=== PATIENT | female | born 1970 | race Caucasian/White ===

== ENCOUNTER 2017-05-21 16:26 | Emergency (ER) | payer MEDICAID | END 2017-05-21 19:18 | disposition home or self-care (01) | LOC: D.ER 16:26 | DX: S16.1XXA Strain of muscle, fascia and tendon at neck level, initial encounter (principal); X58.XXXA Exposure to other specified factors, initial encounter; Y93.89 Activity, other specified; Y92.029 Unspecified place in mobile home as the place of occurrence of the external cause; M62.838 Other muscle spasm; F17.200 Nicotine dependence, unspecified, uncomplicated ==

== ENCOUNTER 2017-10-01 20:00 | Inpatient (IN) | payer MEDICAID ==
[~2017-10-01] VITALS: Ht 172.7 cm; Wt 80.5 kg
--- NOTE | ~2017-10-01 | OP ---
PATIENT NAME: TETE KNIGHT MEDICAL RECORD: [id number] :72 LOCATION:[id number] ADMISSION DATE:10/02/17 SURGEON: ALYSSA PHOENIX MD DATE OF OPERATION: 10/02/2017 PREOPERATIVE DIAGNOSIS: Right ankle fracture. POSTOPERATIVE DIAGNOSIS: Right ankle fracture. PROCEDURE: Open reduction internal fixation of lateral malleolar fracture. SURGEON: Alyssa Phoenix MD ANESTHESIA: General. INTRAOPERATIVE COMPLICATIONS: None. SUMMARY OF PATHOLOGIC FINDINGS: The patient had substantial fracture; however, it reduced nicely and the medial clear space was closed. OPERATIVE SUMMARY IN DETAIL: After obtaining the appropriate preoperative orthopedic surgery consent as well as anesthetic consultation, evaluation and clearance, the patient was brought to the operating room and placed on the operating table in supine position. After general laryngeal mask airway was administered, tourniquet was placed about the proximal aspect of the right lower extremity. Right lower extremity was then prepped and draped in routine sterile fashion. The leg was elevated and exsanguinated, tourniquet inflated to 350 mmHg. An incision was made with the aid of fluoroscopy directly over the lateral distal malleolus, taken down to the level of periosteum. Periosteum was gently removed from the fracture fragments as was all hematoma using a very small curette and lavage, and the fracture was reduced, held in place with fracture forceps while the 8-hole [place] VariAx plate was then affixed. Serial and sequential drill and fill was used using a combination of both compression and locking screws were used to stabilize the fracture. Final radiographs were taken in AP and lateral planes and submitted for radiologist's review. Wound was copiously irrigated and closed with #1 Vicryl, 2-0 Vicryl, and skin ca. Sterile dressings were applied. The patient was awakened and taken to recovery room in stable condition. All final needle and sponge counts were correct. TRANSINT:[id number] Voice Confirmation ID: [id number] DOCUMENT ID: [id number] ALYSSA PHOENIX MD at 1341 CC: [id number] DICTATION DATE: 11/07/17 2252 OYSTER SORTER: 11/08/17 0934 DIS IN 10/03/17 [place] [address]
[2017-10-01 20:55] LABS: BASOPHILS 0.3 % (0-2); EOSINOPHILS 2.4 % (0-7); HEMOGLOBIN 13.5 g/dL (12-16); IMMATURE GRANULOCYTES 0.5 % (0-5); LYMPHOCYTES 26.5 % (15-50); MCH 31.3 pg (26.0-34.0); MCHC 33.8 g/dL (31.0-37.0); MCV 92.8 fL (80.0-100.0); MEAN PLATELET VOLUME 11.1 fL (7.4-10.4); MONOCYTES 9.7 % (2-11); NEUTROPHILS 60.6 % (40-80); PLATELET COUNT 246 10x3/uL (130-400); RBC 4.31 10x6/uL (4.00-5.40); RDW 13.8 % (11.5-14.5); WBC 10.8 10x3/uL (4.8-10.8)
[2017-10-01 21:09] LABS: ALBUMIN 3.3 g/dL (3.4-5.0); ALKALINE PHOSPHATASE 174 U/L (46-116); ALT (SGPT) 42 U/L (10-68); CALC OSMOLALITY 274 mosm/kg (275-300); CALCIUM 8.9 mg/dL (8.5-10.1); CHLORIDE - SERUM 102 mmol/L (98-107); CREATININE - SERUM 0.9 mg/dL (0.6-1.3); GLUCOSE 97 mg/dL (74-106); POTASSIUM - SERUM 4.2 mmol/L (3.5-5.1); PROTEIN - SERUM 7.6 g/dL (6.4-8.2); SODIUM 137 mmol/L (136-145); UREA NITROGEN 15 mg/dL (7-18); eGFR NON AFRICAN AMERICAN 72 mL/min (90-120)
[2017-10-01 21:14] LABS: CREATINE KINASE 78 UL (21-215); MAGNESIUM - SERUM 2.2 mg/dL (1.8-2.4); TROPONIN-I < 0.017 ng/mL (0.000-0.060)
[2017-10-01 21:30] LABS: APPEARANCE CLEAR (CLEAR); BILIRUBIN NEGATIVE (NEGATIVE); COLOR YELLOW (YELLOW); GLUCOSE NEGATIVE (NEGATIVE); KETONE NEGATIVE (NEGATIVE); NITRITE NEGATIVE (NEGATIVE); PROTEIN NEGATIVE (NEGATIVE); SPECIFIC GRAVITY 1.015 (1.005-1.020); UROBILINOGEN NORMAL (NORMAL)
[2017-10-01 21:35] LABS: UDS - AMPHET POSITIVE QUAL (NEGATIVE); UDS - BARB NEGATIVE QUAL (NEGATIVE); UDS - BENZO NEGATIVE QUAL (NEGATIVE); UDS - COCAINE NEGATIVE QUAL (NEGATIVE); UDS - OPIATE NEGATIVE QUAL (NEGATIVE); UDS - PCP NEGATIVE QUAL (NEGATIVE); UDS - THC NEGATIVE QUAL (NEGATIVE)
[2017-10-01 22:42] LABS: INR 0.98 (0.85-1.17); PROTIME 12.6 SECONDS (11.6-15.0)
[2017-10-01 23:49] VITALS: BP 137/83; Ht 172.7 cm; Wt 80.5 kg
[2017-10-01] MEDS ORDERED: FLUPHENAZINE HC10 MG PO (23:56)
[2017-10-01] MEDS ORDERED: ROBAXIN-750750 MG PO (23:58)
[2017-10-01] MEDS ORDERED: NEURONTIN600 MG PO (23:58)
[2017-10-02] VITALS (7 sets, daily range): BP systolic 107–138; BP diastolic 74–87
[2017-10-02] MEDS ORDERED: DOXEPIN HCL75 MG PO (00:01)
[2017-10-02] MEDS ORDERED: TEMAZEPAM30 MG PO (00:02)
[2017-10-03 04:00] VITALS: BP 124/66
[2017-10-03] MEDS ORDERED: OXYCODONE HCL10 MG PO (06:26)
[2017-10-03] MEDS ORDERED: ASPIRIN325 MG PO (06:27)
[2017-10-03 08:25] VITALS: BP 133/67
== END 2017-10-03 12:40 | disposition home or self-care (01) | DRG 494 ==
LOC: D.ER 20:00 → OBSVTIME 22:56 → D.MS 22:56
PROVIDERS: Nurse Practitioner Family; Orthopaedic Surgery
PROC: 0QSJ04Z Reposition Right Fibula with Internal Fixation Device, Open Approach (ICD-10-PCS; principal; 2017-10-02 11:45)
DX: S82.61XA Displaced fracture of lateral malleolus of right fibula, initial encounter for closed fracture (principal); W18.39XA Other fall on same level, initial encounter; F17.200 Nicotine dependence, unspecified, uncomplicated; S16.1XXA Strain of muscle, fascia and tendon at neck level, initial encounter; R55 Syncope and collapse

== ENCOUNTER 2017-11-14 10:32 | Inpatient (IN) | payer MEDICAID ==
[2017-11-14] VITALS (8 sets, daily range): BP systolic 96–126; BP diastolic 48–82; BMI 25.9
[~2017-11-14] VITALS: Ht 172.7 cm; Wt 77.3 kg
--- NOTE | ~2017-11-14 | OP ---
PATIENT NAME: TETE KNIGHT MEDICAL RECORD: [id number] :72 LOCATION:[id number] ADMISSION DATE:11/14/17 SURGEON: ALYSSA PHOENIX MD DATE OF OPERATION: 11/14/2017 PREOPERATIVE DIAGNOSIS: Superficial cellulitis of the right lateral malleolus, status post ORIF of the right ankle. POSTOPERATIVE DIAGNOSIS: Osteomyelitis of the right distal fibula. PROCEDURES: 1. Excisional debridement of skin, subcutaneous tissue, portions of fat, fascia and bone. 2. Removal of hardware, right fibula. SURGEON: Alyssa Phoenix MD ANESTHESIA: General. INTRAOPERATIVE COMPLICATIONS: None. SUMMARY OF PATHOLOGIC FINDINGS: Upon removal of the plate, it was obvious that the entire plate had infection running down it. The 3 most distal screws essentially were no longer adherent to the bone. In fact, the patient had a cavitary abscess in the distal fibula underneath the plate. A combination of rongeur curettage was utilized to completely remove all infectious material underneath and around where the plate was after its removal. Copious bulb syringe was utilized to irrigate the area. I did note the distal tibia fracture has not healed, but maintained good alignment after the plate was removed. Having completed this and taking cultures, wound was gently closed with #1 Vicryl followed by 3-0 Prolene. Sterile dressings were applied. The patient was placed in an L&U boot. Tourniquet was deflated. The patient was awakened, taken to recovery room in stable condition. She will be admitted for IV antibiotics with infectious disease legal consultant. Please note all final needle and sponge counts were correct. TRANSINT:[id number] Voice Confirmation ID: [id number] DOCUMENT ID: [id number] ALYSSA PHOENIX MD at 1842 CC: [id number] DICTATION DATE: 11/14/[address] MRI TECHNOLOGIST: 11/15/17 0202 ADM IN [place] [id number] [place] [address]
[~2017-11-14 10:32] MED LIST: ASPIRIN325 MG PO; DOXEPIN HCL75 MG PO; FLUPHENAZINE HC10 MG PO; NEURONTIN600 MG PO; OXYCODONE HCL10 MG PO; ROBAXIN-750750 MG PO; TEMAZEPAM30 MG PO
[2017-11-14] MEDS ORDERED: MOTRIN600 MG PO (11:09)
[2017-11-14] MEDS ORDERED: BACTRIM DS TABL1 TAB PO (11:11)
[2017-11-14] MEDS ORDERED: PROZAC20 MG PO (11:11)
[2017-11-14] MEDS ORDERED: STRATTERA100 MG PO (11:12)
[2017-11-14 12:08] LABS: HEMATOCRIT 39.7 % (36.0-48.0); HEMOGLOBIN 13.4 g/dL (12-16); MCH 30.6 pg (26.0-34.0); MCHC 33.8 g/dL (31.0-37.0); MCV 90.6 fL (80.0-100.0); MEAN PLATELET VOLUME 12.7 fL (7.4-10.4); RBC 4.38 10x6/uL (4.00-5.40); RDW 14.1 % (11.5-14.5); WBC 6.8 10x3/uL (4.8-10.8)
[2017-11-15] VITALS: BP 96/59
[2017-11-15 04:00] VITALS: BP 129/79; BP 136/59
[2017-11-15 09:15] VITALS: BP 122/80; BP 148/74
[2017-11-15 09:58] LABS: HEMATOCRIT 35.5 % (36.0-48.0); HEMOGLOBIN 11.7 g/dL (12-16); MCH 29.8 pg (26.0-34.0); MCV 90.6 fL (80.0-100.0); MEAN PLATELET VOLUME 10.9 fL (7.4-10.4); RBC 3.92 10x6/uL (4.00-5.40); RDW 14.1 % (11.5-14.5)
[2017-11-15 10:03] LABS: PLATELET COUNT 239 10x3/uL (130-400)
[2017-11-15 10:20] LABS: C-REACTIVE PROTEIN 1.1 mg/dL (0.0-0.9); CALC OSMOLALITY 271 mosm/kg (275-300); CALCIUM 8.8 mg/dL (8.5-10.1); CARBON DIOXIDE 23.1 mmol/L (21.0-32.0); CHLORIDE - SERUM 103 mmol/L (98-107); CREATININE - SERUM 0.8 mg/dL (0.6-1.3); GLUCOSE 100 mg/dL (74-106); POTASSIUM - SERUM 4.1 mmol/L (3.5-5.1); SODIUM 137 mmol/L (136-145); UREA NITROGEN 7 mg/dL (7-18); eGFR NON AFRICAN AMERICAN 82 mL/min (90-120)
[2017-11-15 11:53] LABS: ERYTHROCYTE SEDIMENTATION RATE 45 mm/hr (0-20)
[2017-11-15 14:25] VITALS: BP 97/75
[2017-11-15 17:06] VITALS: BP 135/87
[2017-11-15 20:00] VITALS: BP 131/83
[2017-11-15 20:17] VITALS: Ht 172.7 cm; Wt 77.3 kg
[2017-11-16 04:00] VITALS: BP 136/66
[2017-11-16 09:30] VITALS: BP 130/87
[2017-11-16 12:25] VITALS: BP 145/90
[2017-11-16 17:10] VITALS: BP 159/102
[2017-11-16 20:00] VITALS: BP 137/80
[2017-11-17] VITALS: BP 126/62
[2017-11-17 04:00] VITALS: BP 122/86
[2017-11-17 08:55] VITALS: BP 124/78
[2017-11-17 12:23] VITALS: BP 139/79
[2017-11-17 16:43] VITALS: BP 160/99
[2017-11-17] MEDS ORDERED: PERCOCET 10/3251 TA1 PO (16:56)
== END 2017-11-17 20:16 | disposition home health service (06) | DRG 857 ==
LOC: D.OPS 10:32 → D.MS 21:02 → D.OPS 21:03 → D.MS 21:04
PROVIDERS: Anesthesiology; Orthopaedic Surgery
PROC: 0SPF04Z Removal of Internal Fixation Device from Right Ankle Joint, Open Approach (ICD-10-PCS; principal; 2017-11-14 15:45)
PROC: 0QBJ0ZZ Excision of Right Fibula, Open Approach (ICD-10-PCS; 2017-11-14 15:45)
PROC: 02HV33Z Insertion of Infusion Device into Superior Vena Cava, Percutaneous Approach (ICD-10-PCS; 2017-11-17)
PROC: B548ZZA Ultrasonography of Superior Vena Cava, Guidance (ICD-10-PCS; 2017-11-17)
DX: T81.4XXA Infection following a procedure, initial encounter (principal); M86.9 Osteomyelitis, unspecified; B95.61 Methicillin susceptible Staphylococcus aureus infection as the cause of diseases classified elsewhere; S82.61XG Displaced fracture of lateral malleolus of right fibula, subsequent encounter for closed fracture with delayed healing; X58.XXXD Exposure to other specified factors, subsequent encounter; F15.90 Other stimulant use, unspecified, uncomplicated; F17.200 Nicotine dependence, unspecified, uncomplicated

== ENCOUNTER → 2017-11-21 12:05 | Outpatient (CLI) | payer MEDICAID ==
[2017-11-15 20:17] VITALS: BMI 25.9
[~2017-11-21 12:05] MED LIST changes: +BACTRIM DS TABL1 TAB PO; +MOTRIN600 MG PO; +PERCOCET 10/3251 TA1 PO; +PROZAC20 MG PO; +STRATTERA100 MG PO
[2017-11-21 12:12] LABS: BASOPHILS 0.2 % (0-2); EOSINOPHILS 3.9 % (0-7); HEMATOCRIT 31.4 % (36.0-48.0); HEMOGLOBIN 10.3 g/dL (12-16); IMMATURE GRANULOCYTES 0.4 % (0-5); LYMPHOCYTES 19.3 % (15-50); MCHC 32.8 g/dL (31.0-37.0); MCV 91.5 fL (80.0-100.0); MEAN PLATELET VOLUME 11.7 fL (7.4-10.4); NEUTROPHILS 66.2 % (40-80); PLATELET COUNT 250 10x3/uL (130-400); RBC 3.43 10x6/uL (4.00-5.40); RDW 14.7 % (11.5-14.5); WBC 12.1 10x3/uL (4.8-10.8)
[2017-11-21 12:49] LABS: CREATININE - SERUM 0.8 mg/dL (0.6-1.3)
[2017-11-21 13:22] LABS: ERYTHROCYTE SEDIMENTATION RATE 74 mm/hr (0-20)
== END | disposition home or self-care (01) ==
LOC: D.LABREF 12:05
PROVIDERS: Student in an Organized Health Care Education/Training Program
DX: M86.9 Osteomyelitis, unspecified (principal)

== ENCOUNTER → 2017-11-28 13:15 | Outpatient (CLI) | payer MEDICAID ==
[2017-11-15 20:17] VITALS: BMI 25.9
[2017-11-28 14:06] LABS: BASOPHILS 0.5 % (0-2); EOSINOPHILS 5.7 % (0-7); HEMATOCRIT 39.4 % (36.0-48.0); HEMOGLOBIN 13.3 g/dL (12-16); IMMATURE GRANULOCYTES 0.7 % (0-5); LYMPHOCYTES 31.8 % (15-50); MCH 30.8 pg (26.0-34.0); MCHC 33.8 g/dL (31.0-37.0); MCV 91.2 fL (80.0-100.0); MEAN PLATELET VOLUME 11.3 fL (7.4-10.4); NEUTROPHILS 45.3 % (40-80); PLATELET COUNT 242 10x3/uL (130-400); RBC 4.32 10x6/uL (4.00-5.40); RDW 14.8 % (11.5-14.5)
[2017-11-28 14:15] LABS: UDS - AMPHET NEGATIVE QUAL (NEGATIVE); UDS - BARB NEGATIVE QUAL (NEGATIVE); UDS - BENZO NEGATIVE QUAL (NEGATIVE); UDS - COCAINE NEGATIVE QUAL (NEGATIVE); UDS - OPIATE NEGATIVE QUAL (NEGATIVE); UDS - PCP NEGATIVE QUAL (NEGATIVE); UDS - THC POSITIVE QUAL (NEGATIVE)
[2017-11-28 14:17] LABS: C-REACTIVE PROTEIN 0.6 mg/dL (0.0-0.9); CREATININE - SERUM 0.6 mg/dL (0.6-1.3)
[2017-11-28 15:11] LABS: ERYTHROCYTE SEDIMENTATION RATE 37 mm/hr (0-20)
== END | disposition home or self-care (01) ==
LOC: D.LABREF 13:15
PROVIDERS: Student in an Organized Health Care Education/Training Program
DX: M86.9 Osteomyelitis, unspecified (principal)

== ENCOUNTER → 2017-12-05 14:18 | Outpatient (CLI) | payer MEDICAID ==
[2017-11-15 20:17] VITALS: BMI 25.9
[2017-12-05 13:15] LABS: BASOPHILS 0.2 % (0-2); EOSINOPHILS 8.3 % (0-7); HEMATOCRIT 37.4 % (36.0-48.0); HEMOGLOBIN 12.3 g/dL (12-16); IMMATURE GRANULOCYTES 0.2 % (0-5); LYMPHOCYTES 22.8 % (15-50); MCHC 32.9 g/dL (31.0-37.0); MCV 91.2 fL (80.0-100.0); MEAN PLATELET VOLUME 11.9 fL (7.4-10.4); MONOCYTES 11.6 % (2-11); NEUTROPHILS 56.9 % (40-80); PLATELET COUNT 222 10x3/uL (130-400); RDW 14.5 % (11.5-14.5)
[2017-12-05 14:17] LABS: ERYTHROCYTE SEDIMENTATION RATE 40 mm/hr (0-20)
[2017-12-05 14:29] LABS: C-REACTIVE PROTEIN 1.4 mg/dL (0.0-0.9); CREATININE - SERUM 0.7 mg/dL (0.6-1.3)
== END | disposition home or self-care (01) ==
LOC: D.LABREF 14:18
PROVIDERS: Student in an Organized Health Care Education/Training Program
DX: M86.8X6 Other osteomyelitis, lower leg (principal)

== ENCOUNTER → 2017-12-12 14:25 | Outpatient (CLI) | payer MEDICAID ==
[2017-11-15 20:17] VITALS: BMI 25.9
[2017-12-12 16:31] LABS: BASOPHILS 0.2 % (0-2); EOSINOPHILS 11.1 % (0-7); HEMATOCRIT 34.8 % (36.0-48.0); HEMOGLOBIN 11.4 g/dL (12-16); IMMATURE GRANULOCYTES 0.2 % (0-5); LYMPHOCYTES 18.1 % (15-50); MCH 30.2 pg (26.0-34.0); MCHC 32.8 g/dL (31.0-37.0); MCV 92.3 fL (80.0-100.0); MEAN PLATELET VOLUME 12.2 fL (7.4-10.4); MONOCYTES 7.8 % (2-11); NEUTROPHILS 62.6 % (40-80); RBC 3.77 10x6/uL (4.00-5.40); RDW 15.3 % (11.5-14.5)
[2017-12-12 16:33] LABS: PLATELET COUNT 176 10x3/uL (130-400)
[2017-12-12 16:43] LABS: C-REACTIVE PROTEIN 4.1 mg/dL (0.0-0.9); CREATININE - SERUM 0.6 mg/dL (0.6-1.3)
[2017-12-12 17:52] LABS: ERYTHROCYTE SEDIMENTATION RATE 6 mm/hr (0-20)
== END | disposition home or self-care (01) ==
LOC: D.LABREF 14:25
PROVIDERS: Student in an Organized Health Care Education/Training Program
DX: M86.8X6 Other osteomyelitis, lower leg (principal)

== ENCOUNTER → 2017-12-20 17:27 | Outpatient (CLI) | payer MEDICAID ==
[2017-11-15 20:17] VITALS: BMI 25.9
[2017-12-20 17:38] LABS: BASOPHILS 0.2 % (0-2); EOSINOPHILS 7.2 % (0-7); HEMOGLOBIN 10.6 g/dL (12-16); IMMATURE GRANULOCYTES 0.3 % (0-5); LYMPHOCYTES 11.4 % (15-50); MCH 30.4 pg (26.0-34.0); MCHC 32.1 g/dL (31.0-37.0); MCV 94.6 fL (80.0-100.0); MEAN PLATELET VOLUME 11.7 fL (7.4-10.4); MONOCYTES 9.8 % (2-11); NEUTROPHILS 71.1 % (40-80); PLATELET COUNT 258 10x3/uL (130-400); RBC 3.49 10x6/uL (4.00-5.40); RDW 15.6 % (11.5-14.5); WBC 10.7 10x3/uL (4.8-10.8)
[2017-12-20 17:53] LABS: C-REACTIVE PROTEIN 3.6 mg/dL (0.0-0.9); CREATININE - SERUM 0.8 mg/dL (0.6-1.3)
[2017-12-20 18:36] LABS: ERYTHROCYTE SEDIMENTATION RATE 4 mm/hr (0-20)
== END | disposition home or self-care (01) ==
LOC: D.LABREF 17:27
PROVIDERS: Student in an Organized Health Care Education/Training Program
DX: M86.8X6 Other osteomyelitis, lower leg (principal)

== ENCOUNTER → 2017-12-26 16:46 | Outpatient (CLI) | payer MEDICAID ==
[2017-11-15 20:17] VITALS: BMI 25.9
[2017-12-26 19:13] LABS: BASOPHILS 0.5 % (0-2); EOSINOPHILS 5.7 % (0-7); HEMATOCRIT 34.2 % (36.0-48.0); IMMATURE GRANULOCYTES 0.3 % (0-5); LYMPHOCYTES 18.4 % (15-50); MCH 30.1 pg (26.0-34.0); MCHC 32.2 g/dL (31.0-37.0); MCV 93.7 fL (80.0-100.0); MEAN PLATELET VOLUME 11.4 fL (7.4-10.4); MONOCYTES 13.1 % (2-11); RBC 3.65 10x6/uL (4.00-5.40); RDW 14.8 % (11.5-14.5)
[2017-12-26 19:26] LABS: C-REACTIVE PROTEIN 2.9 mg/dL (0.0-0.9); CREATININE - SERUM 0.8 mg/dL (0.6-1.3)
[2017-12-26 20:00] LABS: PLATELET COUNT 331 10x3/uL (130-400)
[2017-12-26 21:26] LABS: ERYTHROCYTE SEDIMENTATION RATE 50 mm/hr (0-20)
== END | disposition home or self-care (01) ==
LOC: D.LABREF 16:46
PROVIDERS: Student in an Organized Health Care Education/Training Program
DX: M86.8X6 Other osteomyelitis, lower leg (principal)

== ENCOUNTER 2018-03-29 09:28 | Observation (INO) | payer MEDICAID ==
[~2018-03-29] VITALS: Ht 172.7 cm; Wt 63.2 kg
[2018-03-29 09:49] LABS: BASOPHILS 0.3 % (0-2); EOSINOPHILS 0.9 % (0-7); HEMATOCRIT 32.5 % (36.0-48.0); HEMOGLOBIN 10.9 g/dL (12-16); IMMATURE GRANULOCYTES 0.3 % (0-5); LYMPHOCYTES 22.4 % (15-50); MCH 28.7 pg (26.0-34.0); MCHC 33.5 g/dL (31.0-37.0); MCV 85.5 fL (80.0-100.0); MEAN PLATELET VOLUME 11.5 fL (7.4-10.4); MONOCYTES 12.8 % (2-11); NEUTROPHILS 63.3 % (40-80); PLATELET COUNT 302 10x3/uL (130-400); RDW 15.7 % (11.5-14.5); WBC 9.1 10x3/uL (4.8-10.8)
[2018-03-29 09:54] LABS: UDS - AMPHET POSITIVE QUAL (NEGATIVE); UDS - BARB NEGATIVE QUAL (NEGATIVE); UDS - BENZO POSITIVE QUAL (NEGATIVE); UDS - COCAINE NEGATIVE QUAL (NEGATIVE); UDS - OPIATE NEGATIVE QUAL (NEGATIVE); UDS - PCP NEGATIVE QUAL (NEGATIVE); UDS - THC NEGATIVE QUAL (NEGATIVE)
[2018-03-29 09:59] LABS: APPEARANCE CLEAR (CLEAR); BILIRUBIN NEGATIVE (NEGATIVE); COLOR YELLOW (YELLOW); GLUCOSE NEGATIVE (NEGATIVE); HCG URINE NEGATIVE (NEGATIVE); KETONE NEGATIVE (NEGATIVE); NITRITE NEGATIVE (NEGATIVE); PROTEIN NEGATIVE (NEGATIVE); SPECIFIC GRAVITY 1.015 (1.005-1.020); UROBILINOGEN NORMAL (NORMAL)
[2018-03-29 10:31] LABS: ALBUMIN 2.9 g/dL (3.4-5.0); ALKALINE PHOSPHATASE 140 U/L (46-116); ALT (SGPT) 18 U/L (10-68); CALC OSMOLALITY 280 mosm/kg (275-300); CALCIUM 8.2 mg/dL (8.5-10.1); CARBON DIOXIDE 24.9 mmol/L (21.0-32.0); CHLORIDE - SERUM 107 mmol/L (98-107); CKMB 2.7 U/L (0.0-3.6); CREATINE KINASE 235 UL (21-215); CREATININE - SERUM 0.9 mg/dL (0.6-1.3); GLUCOSE 91 mg/dL (74-106); PROTEIN - SERUM 7.2 g/dL (6.4-8.2); SODIUM 142 mmol/L (136-145); UREA NITROGEN 6 mg/dL (7-18); eGFR NON AFRICAN AMERICAN 71 mL/min (90-120)
[2018-03-29 10:34] LABS: POTASSIUM - SERUM 2.6 mmol/L (3.5-5.1); TROPONIN-I < 0.017 ng/mL (0.000-0.060)
[2018-03-29] MEDS ORDERED: REXULTI1 MG PO (15:56)
[2018-03-29] MEDS ORDERED: RISPERDAL1 MG PO (15:57)
[2018-03-29] MEDS ORDERED: INVEGA 3 MG ER T3 MG PO (15:58)
[2018-03-29] MEDS ORDERED: CYCLOBENZAPRINE10 MG PO (15:58)
[2018-03-29 16:22] VITALS: BP 121/75; Ht 172.7 cm; Wt 63.2 kg
[2018-03-29 22:11] VITALS: BP 116/69
[2018-03-30 04:12] VITALS: BP 125/72
[2018-03-30 05:55] LABS: BASOPHILS 0.4 % (0-2); EOSINOPHILS 2.9 % (0-7); HEMATOCRIT 29.9 % (36.0-48.0); HEMOGLOBIN 9.8 g/dL (12-16); IMMATURE GRANULOCYTES 0.2 % (0-5); LYMPHOCYTES 37.3 % (15-50); MCH 28.4 pg (26.0-34.0); MCHC 32.8 g/dL (31.0-37.0); MCV 86.7 fL (80.0-100.0); MEAN PLATELET VOLUME 11.8 fL (7.4-10.4); NEUTROPHILS 48.2 % (40-80); RBC 3.45 10x6/uL (4.00-5.40); RDW 16.2 % (11.5-14.5)
[2018-03-30 06:09] LABS: PLATELET COUNT 229 10x3/uL (130-400); WBC 5.2 10x3/uL (4.8-10.8)
[2018-03-30 06:27] LABS: ALBUMIN 2.4 g/dL (3.4-5.0); ALKALINE PHOSPHATASE 134 U/L (46-116); ALT (SGPT) 21 U/L (10-68); BILIRUBIN - TOTAL 0.33 mg/dL (0.2-1.3); CALC OSMOLALITY 276 mosm/kg (275-300); CALCIUM 7.7 mg/dL (8.5-10.1); CARBON DIOXIDE 21.9 mmol/L (21.0-32.0); CHLORIDE - SERUM 110 mmol/L (98-107); GLUCOSE 82 mg/dL (74-106); MAGNESIUM - SERUM 1.8 mg/dL (1.8-2.4); PROTEIN - SERUM 5.9 g/dL (6.4-8.2); SODIUM 141 mmol/L (136-145); UREA NITROGEN 5 mg/dL (7-18)
[2018-03-30 06:30] LABS: CREATININE - SERUM 0.6 mg/dL (0.6-1.3); POTASSIUM - SERUM 3.6 mmol/L (3.5-5.1); eGFR NON AFRICAN AMERICAN > 90 mL/min (90-120)
[2018-03-30 09:23] VITALS: BP 144/88
== END 2018-03-30 14:13 | disposition home or self-care (01) ==
LOC: D.ER 09:28 → D.EDHOLD 11:04 → D.MS 11:04 → OBSVTIME 11:05 → D.MS 14:28
PROVIDERS: Family Medicine
DX: F15.129 Other stimulant abuse with intoxication, unspecified (principal); R41.89 Other symptoms and signs involving cognitive functions and awareness; E87.6 Hypokalemia; F32.9 Major depressive disorder, single episode, unspecified; F17.210 Nicotine dependence, cigarettes, uncomplicated

== ENCOUNTER 2018-04-26 15:29 | Emergency (ER) | payer MEDICAID ==
[~2018-04-26] VITALS: Ht 172.7 cm; Wt 68.2 kg
[~2018-04-26 15:29] MED LIST changes: +CYCLOBENZAPRINE10 MG PO; +INVEGA 3 MG ER T3 MG PO; +REXULTI1 MG PO; +RISPERDAL1 MG PO
[2018-04-26 15:31] VITALS: Ht 172.7 cm; Wt 68.2 kg
[2018-04-26 16:06] LABS: BASOPHILS 0.2 % (0-2); HEMATOCRIT 33.1 % (36.0-48.0); HEMOGLOBIN 11.1 g/dL (12-16); IMMATURE GRANULOCYTES 0.3 % (0-5); LYMPHOCYTES 13.5 % (15-50); MCH 28.1 pg (26.0-34.0); MCHC 33.5 g/dL (31.0-37.0); MCV 83.8 fL (80.0-100.0); MONOCYTES 7.6 % (2-11); NEUTROPHILS 76.4 % (40-80); RBC 3.95 10x6/uL (4.00-5.40); RDW 14.3 % (11.5-14.5); WBC 13.1 10x3/uL (4.8-10.8)
[2018-04-26 16:23] LABS: PLATELET COUNT 278 10x3/uL (130-400)
[2018-04-26 16:29] LABS: ALBUMIN 3.2 g/dL (3.4-5.0); ANION GAP 10.5 mmol/L (8-16); BILIRUBIN - TOTAL 0.22 mg/dL (0.2-1.3); CALCIUM 8.5 mg/dL (8.5-10.1); CARBON DIOXIDE 24.8 mmol/L (21.0-32.0); POTASSIUM - SERUM 3.3 mmol/L (3.5-5.1); PROTEIN - SERUM 7.9 g/dL (6.4-8.2)
[2018-04-26 16:39] LABS: APPEARANCE CLEAR (CLEAR); BILIRUBIN NEGATIVE (NEGATIVE); COLOR YELLOW (YELLOW); GLUCOSE NEGATIVE (NEGATIVE); KETONE NEGATIVE (NEGATIVE); NITRITE NEGATIVE (NEGATIVE); PROTEIN NEGATIVE (NEGATIVE); SPECIFIC GRAVITY 1.015 (1.005-1.020); UROBILINOGEN NORMAL (NORMAL)
[2018-04-26 16:57] LABS: UDS - AMPHET POSITIVE QUAL (NEGATIVE); UDS - BARB NEGATIVE QUAL (NEGATIVE); UDS - BENZO POSITIVE QUAL (NEGATIVE); UDS - COCAINE NEGATIVE QUAL (NEGATIVE); UDS - OPIATE NEGATIVE QUAL (NEGATIVE); UDS - PCP NEGATIVE QUAL (NEGATIVE); UDS - THC NEGATIVE QUAL (NEGATIVE)
[2018-04-26 18:48] VITALS: BP 148/091
== END 2018-04-26 18:49 | disposition home or self-care (01) ==
LOC: D.ER 15:29
PROVIDERS: Family Medicine
DX: F41.9 Anxiety disorder, unspecified (principal); F15.10 Other stimulant abuse, uncomplicated; F19.10 Other psychoactive substance abuse, uncomplicated; F17.200 Nicotine dependence, unspecified, uncomplicated